=== PATIENT | female | born 1990 | race African-American/Black ===

== ENCOUNTER → 2023-12-24 12:50 | Outpatient (REF) | payer BC, SELFPAY | LOC: HWRAD 12:50 | PROVIDERS: ATTENDING PHYSICIAN Physician Assistant Medical | DX: E04.9 Nontoxic goiter, unspecified (principal) | CPT/HCPCS: 76536 ==

== ENCOUNTER → 2025-03-09 08:56 | Outpatient (REF) | payer BC, SELFPAY | LOC: WDC 08:56 | PROVIDERS: ATTENDING PHYSICIAN Physician Assistant | DX: N64.59 Other signs and symptoms in breast (principal) | CPT/HCPCS: 76642; 77062; 77066 ==

== ENCOUNTER 2025-04-23 13:50 | Outpatient (RCR) | payer BC, SELFPAY ==
[2025-04-11 13:50] VITALS: BP 118/61
[2025-04-11] MEDS: VENOFER 110 MG IV (14:07)
[2025-04-13 11:14] VITALS: BP 130/61
[2025-04-13] MEDS: VENOFER 110 MG IV (11:26)
--- NOTE | 2025-04-13 11:40 | W.PN.UPDATE ---
Update Note
- Progress Note Update
04/13/25 11:40
Patient in clinic seen today at request of OIRafiq Woo. Patient here today for iron infusion. This is #2 of 5. Her VSS. Notes after receiving iron infusion after going home she developed 'palpitations' that lasted for about 2 hours then
resolved. At the time no other symptoms were noted by the patient. She states after receiving her infusion she went home to rest and was woken up by the palpitations. She continued to rest and they resolved. Since that time she has had no other
symptoms noted. She does have a history SOB on exertion which prompted the w/u in the ER recently and w/u was negative with the exception of anemia. A 12 point ROS was conducted and is negative at today's visit. She has been taking omeprazole as
rec by her PCP due to ? gastritis and thought to impact the tachycardia/palpitations. HR - RRR and lungs CTA. AAOx3. Encouraged increased hydration and to monitor symptoms after next treatment. If recurs will discuss with PCP. She is due for
treatment next Wednesday.
04/13/25 11:50
04/13/25 11:52
[2025-04-13 12:34] VITALS: BP 121/61
[2025-04-13 12:45] VITALS: BP 134/74
[2025-04-17 08:45] VITALS: BP 103/62
[2025-04-17] MEDS: VENOFER 110 MG IV (09:02)
[2025-04-17 10:45] VITALS: BP 105/67
--- NOTE | 2025-04-17 11:04 | PTCARENOTE ---
Client presents for dose 3 of a 5 dose series of Venofer infusions. Stated that she had heart 'palpatations and heart racing ' before and after her first dose of venofer. States she has had none further since first dose. Heartrate 65 pre infusion
and 57 post. BP 103/62 pre infusion and 105/67 post. States she is also feeling less fatiqued. Advised to call Renee MEJIA if any further palpatations occur.
[2025-04-20 14:00] VITALS: BP 113/58
[2025-04-20] MEDS: VENOFER 110 MG IV (14:10)
[2025-04-20 15:39] VITALS: BP 105/66
[2025-04-23] MEDS: VENOFER 110 MG IV (14:03)
[2025-04-23 14:07] VITALS: BP 116/67
[2025-04-23 15:07] VITALS: BP 104/59
== END 2025-05-01 23:59 | disposition home or self-care (01) ==
LOC: OID 13:50
PROVIDERS: ATTENDING PHYSICIAN Physician Assistant; FAMILY PHYSICIAN Physician Assistant Medical
DX: D50.9 Iron deficiency anemia, unspecified (principal); D64.9 Anemia, unspecified (principal); R06.02 Shortness of breath; R00.2 Palpitations
CPT/HCPCS: 96365; J1756